=== PATIENT | female | born 1995 | race Caucasian/White ===

== ENCOUNTER 2017-12-26 09:22 | Emergency (ER) | payer OTHER ==
[~2017-12-26] VITALS: Ht 154.9 cm; Wt 62.2 kg
[~2017-12-26 09:22] MED LIST: LO LOESTRIN PO
[2017-12-26] MEDS ORDERED: FLEXERIL PO (11:24)
[2017-12-26] MEDS ORDERED: TORADOL PO (11:24)
[2017-12-26 11:36] VITALS: BP 138/85
== END 2017-12-26 11:33 | disposition home or self-care (01) | DRG 552 ==
LOC: ED 09:22
DX: S16.1XXA Strain of muscle, fascia and tendon at neck level, initial encounter (principal); V44.5XXA Car driver injured in collision with heavy transport vehicle or bus in traffic accident, initial encounter; Y92.413 State road as the place of occurrence of the external cause